=== PATIENT | female | born 1935 | race Caucasian/White ===

== ENCOUNTER 2016-11-14 10:46 | Emergency (ER) | payer MEDICARE, BC ==
[2016-11-14 11:05] VITALS: BP 147/79
--- NOTE | 2016-11-14 20:01 | EDM.PDOC ---
ED HPI GENERAL MEDICAL PROBLEM - General Chief Complaint: Neuro Symptoms/Deficits Stated Complaint: DIZZINESS,FALL,HEADACHE Time Seen by Provider: 11/14/16 12:14 Source of Information: Reports: Patient History Limitations: Reports: No Limitations - History of Present Illness INITIAL COMMENTS - FREE TEXT/NARRATIVE: This patient complains of feeling dizzy and off balance. Yesterday she fell and got a bruise on her chest and right wrist. She also bumped her head just a little bit but she's not on any anticoagulation. Her dizziness is described as just feeling off balance. She denies vertigo and she denies any near syncope. She's felt or heard a noise in her left ear for the last 3 years that sounds sort of like listening to a sea shell. It's sort of a roaring noise. She denies any ear pain. The dizziness for a week is the first dizziness she has had - Related Data Allergies Allergy/AdvReac Type Severity Reaction Status Date / Time No Known Allergies Allergy Verified 11/14/16 11:08 Home Meds: Home Meds Atenolol [Atenolol] 25 mg PO BEDTIME 12/30/15 [History] FLUoxetine [PROzac] 20 mg PO DAILY 12/30/15 [History] Hydrochlorothiazide 25 mg PO DAILY 12/30/15 [History] Lisinopril 20 mg PO BEDTIME 12/30/15 [History] Omeprazole 20 mg PO DAILY 12/30/15 [History] Simvastatin [Simvastatin] 20 mg PO BEDTIME 12/30/15 [History] Past Medical History HEENT History: Reports: Cataract, Impaired Vision Other HEENT History: wears glasses Cardiovascular History: Reports: High Cholesterol, Hypertension Gastrointestinal History: Reports: GERD Genitourinary History: Reports: Chronic Renal Insuffiency, Other (See Below) Other Genitourinary History: CKD Musculoskeletal History: Reports: RA Neurological History: Reports: Headaches, Chronic Psychiatric History: Reports: Anxiety, Depression Hematologic History: Reports: B12 Deficiency - Infectious Disease History Infectious Disease History: Reports: Chicken Pox, Measles - Past Surgical History GI Surgical History: Reports: Appendectomy, Cholecystectomy Female Surgical History: Reports: Tubal Ligation Musculoskeletal Surgical History: Reports: Arthroscopic Knee Social & Family History - Tobacco Use Smoking Status *Q: Never Smoker - Recreational Drug Use Recreational Drug Use: No ED ROS GENERAL - Review of Systems Review Of Systems: ROS reveals no pertinent complaints other than HPI. ED EXAM, NEURO - Physical Exam Exam: See Below Exam Limited By: No Limitations General Appearance: Alert, WD/WN, No Apparent Distress Eye Exam: Bilateral Eye: EOMI, PERRL Ears: Normal External Exam, Normal TMs Nose: Normal Inspection Throat/Mouth: Normal Oropharynx Head Exam: Atraumatic Neck: Normal Inspection Respiratory/Chest: No Respiratory Distress, Lungs Clear Cardiovascular: Regular Rate, Rhythm GI/Abdominal: Soft, Non-Tender Neurological: Alert, Normal Mood/Affect, Normal Dorsiflexion, CN II-XII Intact, Normal Gait, Normal Reflexes, Oriented x 3, Difficulty Walking, Other (She does have a Romberg sign. On confrontation testing she has a tendency to fall backwards.) DTR: 2+: Bicep (R), Bicep (L), Patella (R), Patella (L) Back Exam: Normal Inspection Extremities: Normal Inspection Psychiatric: Normal Affect Skin Exam: Warm, Dry Course - Vital Signs Last Recorded V/S: Last Vital Signs Temp 35.9 C 11/14/16 11:15 Pulse 86 11/14/16 11:15 Resp 16 11/14/16 11:15 BP 147/79 H 11/14/16 11:15 Pulse Ox 97 11/14/16 11:15 - Re-Assessments/Exams Free Text/Narrative Re-Assessment/Exam: 11/14/16 19:59 I spoke with Hayley recinos in the [facility] and she will arrange follow-up with this patient. Patient normally sees Dr. Daley Departure - Departure Time of Disposition: 20:00 Disposition: Against Medical Advice 07 Clinical Impression: Disequilibrium - Discharge Information Referrals: Issa Daley MD [Primary Care Provider] - Forms: ED Department Discharge Additional Instructions: While waiting to speak with the on-scalloper for the [facility] the patient left AGAINST MEDICAL ADVICE. She said that she was just tired of waiting. The PA will arrange for her to be followed up in clinic. She'll need further follow-up to rule out an acoustic neuroma.
== END 2016-11-14 13:00 | disposition left against medical advice (07) ==
LOC: JP.ED 10:46
DX: R42 Dizziness and giddiness (principal); E78.00 Pure hypercholesterolemia, unspecified; I12.9 Hypertensive chronic kidney disease with stage 1 through stage 4 chronic kidney disease, or unspecified chronic kidney disease; N18.9 Chronic kidney disease, unspecified; F41.9 Anxiety disorder, unspecified; K21.9 Gastro-esophageal reflux disease without esophagitis; F32.9 Major depressive disorder, single episode, unspecified; Z90.49 Acquired absence of other specified parts of digestive tract; Z98.51 Tubal ligation status; Z79.899 Other long term (current) drug therapy
CPT/HCPCS: 99282; 99284

== ENCOUNTER 2016-11-15 09:20 | Emergency (ER) | payer MEDICARE, BC ==
--- NOTE | 2016-11-15 10:41 | EDM.PDOC ---
[id number]: DIZZINESS Time Seen by Provider: 11/15/16 09:55 Source of Information: Reports: Patient, Family History Limitations: Reports: No Limitations - History of Present Illness INITIAL COMMENTS - FREE TEXT/NARRATIVE: 81-year-old female who has fallen a few times over the past couple of days and has had some persistent unsteadiness. She has a bruise on her forehead, several bruises on her abdomen and a few bruises on her lower extremities from her falls. She used to have syncope with migraines but she has had no headaches. She came into the emergency room 2 days ago to be evaluated but left after waiting, went into the clinic this morning and was sent back to the emergency room for a head CT. Her vitals are stable, she has no double vision, denies shortness of breath or abdominal pain, and despite bruises has no significant extremity pain, ambulates without difficulty. Severity: Moderate Associated Symptoms: Denies: Chest Pain, Cough, Diaphoresis, Loss of Appetite, Nausea/Vomiting, Shortness of Breath Head Pain Score (Numeric/FACES): 5 - Related Data Allergies Allergy/AdvReac Type Severity Reaction Status Date / Time No Known Allergies Allergy Verified 11/15/16 09:45 Home Meds: Home Meds Atenolol [Atenolol] 25 mg PO BEDTIME 12/30/15 [History] FLUoxetine [PROzac] 20 mg PO DAILY 12/30/15 [History] Hydrochlorothiazide 25 mg PO DAILY 12/30/15 [History] Lisinopril 20 mg PO BEDTIME 12/30/15 [History] Omeprazole 20 mg PO DAILY 12/30/15 [History] Simvastatin [Simvastatin] 20 mg PO BEDTIME 12/30/15 [History] Past Medical History HEENT History: Reports: Cataract, Impaired Vision Other HEENT History: wears glasses Cardiovascular History: Reports: High Cholesterol, Hypertension Gastrointestinal History: Reports: GERD Genitourinary History: Reports: Chronic Renal Insuffiency, Other (See Below) Other Genitourinary History: CKD Musculoskeletal History: Reports: RA Neurological History: Reports: Headaches, Chronic Psychiatric History: Reports: Anxiety, Depression Hematologic History: Reports: B12 Deficiency - Infectious Disease History Infectious Disease History: Reports: Chicken Pox, Measles, Shingles - Past Surgical History GI Surgical History: Reports: Appendectomy, Cholecystectomy Female Surgical History: Reports: Tubal Ligation Musculoskeletal Surgical History: Reports: Arthroscopic Knee Social & Family History - Tobacco Use Smoking Status *Q: Never Smoker - Recreational Drug Use Recreational Drug Use: No ED ROS GENERAL - Review of Systems Review Of Systems: See Below Constitutional: Denies: Fever, Chills, Malaise HEENT: Denies: Vision Change Respiratory: Denies: Shortness of Breath GI/Abdominal: Denies: Nausea, Vomiting Skin: Reports: Bruising Neurological: Reports: Dizziness, Syncope, Other (Feels unsteady) Psychiatric: Reports: No Symptoms ED EXAM, GENERAL - Physical Exam Exam: See Below Exam Limited By: No Limitations General Appearance: Alert, No Apparent Distress Eye Exam: Bilateral Eye: EOMI, Normal Inspection (No nystagmus) Throat/Mouth: Normal Inspection Head: Other (Some bruising is noted on the right lateral forehead, no significant swelling) Neck: Non-Tender Respiratory/Chest: No Respiratory Distress GI/Abdominal: Other (Patient has some superficial bruises across the upper abdomen, right lower abdomen but no tenderness to palpation) Neurological: Alert, Oriented, No Motor/Sensory Deficits, Other (Romberg is negative, no pronator drift) Course - Vital Signs Last Recorded V/S: Last Vital Signs Temp 207.1 F H 11/15/16 11:25 Pulse 72 11/15/16 11:25 Resp 15 11/15/16 11:25 BP 170/82 H 11/15/16 11:25 Pulse Ox 95 11/15/16 11:25 - Re-Assessments/Exams Free Text/Narrative Re-Assessment/Exam: 11/15/16 10:[address] of the head without contrast was obtained. 11/15/16 11:04 CT of the head was normal. Patient continued to appear asymptomatic and stable. She was discharged and told to follow up with her primary care provider to discuss her chronic headaches and her normal CT scan, to get guidance for any further workup or treatment necessary. Departure - Departure Time of Disposition: 11:29 Disposition: Home, Self-Care 01 Condition: Good Clinical Impression: Disequilibrium Chronic headaches Qualifiers: Headache type: tension-type Intractability: not intractable Qualified Code(s): G44.229 - Chronic tension-type headache, not intractable - Discharge Information Instructions: Head Injury, Adult, Dizziness Referrals: Issa Daley MD [Primary Care Provider] - Forms: ED Department Discharge Care Plan Goals: Recheck with your primary provider to discuss any further evaluation or change in treatment to help you with your symptoms and chronic headaches.
--- NOTE | 2016-11-15 10:53 | CT ---
CT head without contrast. Indication: Dizziness, falls. Total the open the 717. Findings: No mass effect or midline shift. No hemorrhage. No subacute territorial infarct. There are calcifications. Minimal hypodensity surrounding the periventricular white matter which may indicate chronic small vessel ischemic disease. Calvarium intact. Mastoid air cells are clear. Impression: 1. No acute intracranial process by CT.
[2016-11-15 11:27] VITALS: BP 170/82
== END 2016-11-15 11:29 | disposition home or self-care (01) ==
LOC: JP.ED 09:20
DX: R42 Dizziness and giddiness (principal); S30.1XXA Contusion of abdominal wall, initial encounter; S00.83XA Contusion of other part of head, initial encounter; G44.229 Chronic tension-type headache, not intractable; I12.9 Hypertensive chronic kidney disease with stage 1 through stage 4 chronic kidney disease, or unspecified chronic kidney disease; N18.9 Chronic kidney disease, unspecified; E78.00 Pure hypercholesterolemia, unspecified; K21.9 Gastro-esophageal reflux disease without esophagitis; F41.9 Anxiety disorder, unspecified; F32.9 Major depressive disorder, single episode, unspecified; Z90.49 Acquired absence of other specified parts of digestive tract; Z98.890 Other specified postprocedural states; Z98.51 Tubal ligation status; Z79.899 Other long term (current) drug therapy; W19.XXXA Unspecified fall, initial encounter
CPT/HCPCS: 70450; 70450-26; 99283; 99284-25

== ENCOUNTER 2021-11-10 17:16 | Emergency (ER) | payer MEDICARE ==
[2021-11-10 17:30] VITALS: BP 169/64; PULSE 73
== END 2021-11-10 18:14 | disposition home or self-care (01) ==
LOC: JP.ED 17:16
DX: L03.113 Cellulitis of right upper limb (principal); I12.9 Hypertensive chronic kidney disease with stage 1 through stage 4 chronic kidney disease, or unspecified chronic kidney disease; E78.00 Pure hypercholesterolemia, unspecified; K21.9 Gastro-esophageal reflux disease without esophagitis; N18.9 Chronic kidney disease, unspecified
CPT/HCPCS: 99283

== ENCOUNTER 2024-09-25 15:03 | Emergency (ER) | payer BC, MEDICARE ==
[2024-09-25 15:46] LABS: BASOPHILS PERCENT AUTO 0.6 % (0.1-1.3); EOSINOPHILS ABSOLUTE AUTO 0.19 K/uL (0.00-0.40); EOSINOPHILS PERCENT AUTO 5.8 % (0.0-5.4); HEMATOCRIT 29.6 % (34.3-46.0); HEMOGLOBIN 10.1 g/dL (11.2-15.5); IMMATURE GRAN PERCENT AUTO 0.6 % (0.0-0.7); LYMPHOCYTES ABSOLUTE AUTO 1.47 K/uL (0.8-3.3); LYMPHOCYTES PERCENT AUTO 44.7 % (11.4-47.7); MEAN CORPUSCULAR HEMOGLOBIN 33.4 pg (31.6-35.5); MEAN CORPUSCULAR HGB CONC 34.1 g/dL (31.6-35.5); MONOCYTES ABSOLUTE AUTO 0.32 K/uL (0.20-0.90); MONOCYTES PERCENT AUTO 9.7 % (3.3-12.6); NEUTROPHILS ABSOLUTE AUTO 1.27 K/uL (1.0-7.6); NEUTROPHILS PERCENT AUTO 38.6 % (40.0-78.1); PLATELET COUNT,PLT 174 K/uL (130-375); RED BLOOD CELL COUNT 3.02 M/uL (3.77-5.24); WHITE BLOOD CELL COUNT,WBC 3.3 K/uL (3.2-11.0)
[2024-09-25 15:47] LABS: BASOPHILS ABSOLUTE AUTO 0.02 K/uL (0.00-0.10); IMMATURE GRAN ABSOLUTE AUTO 0.02 K/uL (0.00-0.23)
[2024-09-25 16:08] LABS: A/G RATIO 1.1 (1.2-2.2); ALANINE AMINOTRANSFERASE,ALT 21 U/L (12-78); ALBUMIN 3.5 g/dL (3.4-5.0); ALKALINE PHOSPHATASE 64 U/L (46-116); ASPARTATE AMNIOTRANSFERASE,AST 17 U/L (15-37); BILIRUBIN TOTAL 0.3 mg/dL (0.2-1.0); BLOOD UREA NITROGEN,BUN 22 mg/dL (7-18); CALCIUM 9.1 mg/dL (8.5-10.1); CARBON DIOXIDE,CO2 24 mmol/L (21-32); CHLORIDE,CL 101 mmol/L (100-108); CREATININE 1.4 mg/dL (0.6-1.0); EST CRCL DRUG DOSING (CG) 24.45 mL/min; ESTIMATED GFR 36 mL/min (>60); GLUCOSE RANDOM 121 mg/dL (74-106); PROTEIN TOTAL,TP 6.6 g/dL (6.4-8.2); SODIUM,NA 136 mmol/L (140-148)
[2024-09-25 16:38] LABS: LYME AB IgG Negative (Negative)
[2024-09-25 16:44] LABS: LYME AB IgM Negative (Negative)
[2024-09-25] MEDS: Sodium Chloride 0.9% 80 ML IV SCH (16:51)
[2024-09-25] MEDS: Iopamidol 612 MG/ML 100 ML Bottle IV SCH (16:51)
[2024-09-25 16:58] LABS: APPEARANCE,URINE CLEAR (CLEAR); BILIRUBIN,URINE NEGATIVE (NEGATIVE); COLOR,URINE YELLOW (YELLOW); GLUCOSE,URINE NEGATIVE (NEGATIVE); KETONES,URINE NEGATIVE (NEGATIVE); LEUKOCYTE ESTERASE,URINE NEGATIVE (NEGATIVE); NITRITE,URINE NEGATIVE (NEGATIVE); OCCULT BLOOD,URINE NEGATIVE (NEGATIVE); PH,URINE 6.5 (5.0-8.0); PROTEIN,URINE NEGATIVE (NEGATIVE); UROBILINOGEN,URINE 0.2 EU/dL (0.2-1.0)
[2024-09-25] MEDS: Sodium Chloride 0.9% 1,000 ML IV ONE (16:59)
[2024-09-25] MEDS: fentaNYL 50 MCG/ML SDV IVPUSH ONE (17:02)
[2024-09-25 17:06] LABS: AMORPHOUS SEDIMENT,URINE NOT SEEN; BACTERIA,URINE NOT SEEN; EPITHELIAL CELLS,URINE RARE; MUCUS,URINE RARE; RBC,URINE 0-5 (0-5); WBC,URINE 0-5 (0-5)
[2024-09-25 18:29] VITALS: BP 149/57; PULSE 72
== END 2024-09-25 19:18 | disposition home or self-care (01) ==
LOC: JP.ED 15:03
DX: J84.9 Interstitial pulmonary disease, unspecified (principal); R05.3 Chronic cough; I12.9 Hypertensive chronic kidney disease with stage 1 through stage 4 chronic kidney disease, or unspecified chronic kidney disease; N18.9 Chronic kidney disease, unspecified; E78.00 Pure hypercholesterolemia, unspecified; Z90.49 Acquired absence of other specified parts of digestive tract; Z79.899 Other long term (current) drug therapy
CPT/HCPCS: 36415; 70450; 71260; 72125; 74177; 76377; 80053; 81001; 84484; 85025; 86140; 86618; 87468; 87469; 87484; 87798; 93005; 96361; 96374; 99285; J3010; J7030; Q9967